=== PATIENT | male | born 1990 | race Caucasian/White ===

== ENCOUNTER 2017-09-19 10:19 | Emergency (ER) | payer OTHER ==
[~2017-09-19] VITALS: Ht 162.6 cm; Wt 70.8 kg
[2017-09-19 10:39] VITALS: Ht 162.6 cm; Wt 70.8 kg
[2017-09-19 11:49] VITALS: BP 131/79
== END 2017-09-19 11:49 | disposition home or self-care (01) ==
LOC: ED 10:19
DX: S39.012A Strain of muscle, fascia and tendon of lower back, initial encounter (principal); J45.909 Unspecified asthma, uncomplicated; Z88.1 Allergy status to other antibiotic agents; X58.XXXA Exposure to other specified factors, initial encounter; Y93.89 Activity, other specified; Y92.89 Other specified places as the place of occurrence of the external cause; Y99.8 Other external cause status
CPT/HCPCS: J1885

== ENCOUNTER 2017-09-21 14:15 | Emergency (ER) | payer OTHER ==
[~2017-09-21] VITALS: Ht 162.6 cm; Wt 70.8 kg
[2017-09-21 14:24] VITALS: BP 132/86; Ht 162.6 cm; Wt 70.8 kg
== END 2017-09-21 15:02 | disposition home or self-care (01) ==
LOC: ED 14:15
DX: M54.5 Low back pain (principal); Z02.89 Encounter for other administrative examinations